=== PATIENT | female | born 1960 | race Asian ===

== ENCOUNTER 2018-10-05 05:44 | Day surgery (SDC) | payer OTHER ==
[~2018-10-05] VITALS: Ht 154.9 cm; Wt 46.9 kg
[2018-10-05 06:31] VITALS: Ht 154.9 cm; Wt 46.9 kg
[2018-10-05 06:38] VITALS: BP 182/88; PULSE 80; RESP 16
[2018-10-05] MEDS ORDERED: ALEVE (07:07)
[2018-10-05] MEDS ORDERED: VITAMIN C (07:07)
[2018-10-05] MEDS ORDERED: VITAMIN SUPPLEMENTS (07:07)
[2018-10-05] MEDS ORDERED: FENTAnyl 50 MCG/ML VIAL ONE (08:23)
[2018-10-05] MEDS ORDERED: MIDAZOLAM 1 MG/ML 2 ML INJ ONE (08:23)
[2018-10-05 08:34] VITALS: BP 146/73; PULSE 69; RESP 18
--- NOTE | 2018-10-05 11:30 | CONS ---
DATE OF ADMISSION: 10/05/2018 DATE OF CONSULTATION: PATIENT NAME: ROSY VALVERDE TYPE OF CONSULTATION: Preoperative gastroenterology. I thank you very much for this kind referral. HISTORY OF PRESENT ILLNESS: ____ is a 58-year-old female patient who has been referred to me for fur ther evaluation of chronic heartburn associated with burping. Sometimes after the heartburn, she spi ts out saliva and she finds some blood in it. The patient went to the emergency room and chest x-ray was normal. The patient also complains of epigastric pain. No past history of peptic ulcer disease . The patient takes Pepcid without complete relief of the symptoms. Not on nonsteroidal anti-inflam matory agents. Appetite is good. No weight loss. Status post cholecystectomy. No liver disease. The patient denies any change in the bowel habit or rectal bleeding. She never had screening colonos copy. She has history of hypertension, but not on any medications. No diabetes, heart disease, lung problem or kidney disease. Status post craniotomy for brain tumor. She also had section. SOCIAL HISTORY: Nonsmoker. No alcohol abuse. FAMILY HISTORY: No family history of gastrointestinal tract neoplasm. ALLERGIES: NO DRUG ALLERGIES. MEDICATIONS: None. PHYSICAL EXAMINATION: VITAL SIGNS: She is 5 feet 1 inch tall and weighs 104 pounds. HEART: Normal heart sounds. LUNGS: Clear. ABDOMEN: Soft, no masses. Normal bowel sounds. NEUROLOGIC: Normal neurological exam. IMPRESSION: 1. Chronic heartburn and burping, not responding to therapy. 2. After severe heartburn, sometimes she spits up saliva and she has noticed blood in it. 3. Chest x-ray was normal. 4. Upper abdominal pain, not responding to therapy. 5. The patient is a 58-year-old and she never had screening colonoscopy. 6. Status post cholecystectomy. 7. Status post craniotomy for brain tumor. 8. Status post section. PLAN: 1. Endoscopic examination for further evaluation. 2. Screening colonoscopy at a later date. The procedures and possible complications are well explained to the patient. She understands and con sents to the procedures. I thank you once again. With warmest personal regards, Dictated By: MARIS ASIF/QUINN Conf#: [id number] DID#: [id number]
== END 2018-10-05 11:15 | disposition home or self-care (01) ==
LOC: GIL 05:44
PROVIDERS: ATTEND Internal Medicine Gastroenterology
DX: K21.9 Gastro-esophageal reflux disease without esophagitis (principal)
CPT/HCPCS: 43239; 88305; 88312; J2250; J3010; Z7610